=== PATIENT | female | born 1975 | race Caucasian/White ===

== ENCOUNTER 2023-11-16 08:51 | Day surgery (SDC) | payer OTHER ==
[~2023-11-16] VITALS: Ht 160 cm; Wt 89.4 kg
[~2023-11-16 08:51] MED LIST: ALEVE220 M2 PO; ATORVASTATIN CA10 MG PO; D325 MCG PO; EPIPEN 2-PAK0.3 MG IM; EPIPEN0.3 MG IM; FISH OIL1000 M1 PO; FLEXERIL PO; LORTAB 10-325 M1 TAB PO; NEXIUM40 M1 PO; NO MEDS; OS-CAL 500500 M1 PO; ROCEPHIN 2250 MG/VIA IM; TRAMADOL HCL50 MG PO; ZITHROMAX500 MG PO
[2023-11-16] MEDS ORDERED: LACTATED RINGER'S 1,000 ML IV ONE (09:16)
[2023-11-16 11:18] VITALS: BP 121/89
[2023-11-16] MEDS ORDERED: PROPOFOL 200 MG/20 ML VIAL IV ONE (14:00)
[2023-11-16] MEDS ORDERED: LIDOCAINE HCL 2% 2ML SDV IV ONE (14:00)
[2023-11-16] MEDS ORDERED: GLYCOPYRROLATE 0.2 MG/ML IV ONE (14:00)
== END 2023-11-16 11:32 | disposition home or self-care (01) | DRG 951 ==
LOC: ENDO 08:51 → ORM 14:15 → ENDO 14:15
PROVIDERS: ATTEND Internal Medicine Gastroenterology
PROC: 0DBK8ZX Excision of Ascending Colon, Via Natural or Artificial Opening Endoscopic, Diagnostic (ICD-10-PCS; principal; 2023-11-16)
PROC: 0DBP8ZX Excision of Rectum, Via Natural or Artificial Opening Endoscopic, Diagnostic (ICD-10-PCS; 2023-11-16)
DX: Z12.11 Encounter for screening for malignant neoplasm of colon (principal); D12.2 Benign neoplasm of ascending colon; K62.1 Rectal polyp; K64.8 Other hemorrhoids; K21.9 Gastro-esophageal reflux disease without esophagitis; E78.5 Hyperlipidemia, unspecified; G62.9 Polyneuropathy, unspecified; Z80.0 Family history of malignant neoplasm of digestive organs; Z87.891 Personal history of nicotine dependence